=== PATIENT | male | born 1995 | race Caucasian/White ===

== ENCOUNTER 2020-02-06 18:06 | Emergency (ER) | payer OTHER ==
[~2020-02-06] VITALS: Ht 180.3 cm; Wt 83.5 kg
[2020-02-06 18:30] VITALS: BP 131/92
== END 2020-02-06 20:56 | disposition home or self-care (01) ==
LOC: ED 20:30
DX: S93.401A Sprain of unspecified ligament of right ankle, initial encounter (principal); V49.69XA Unspecified car occupant injured in collision with other motor vehicles in traffic accident, initial encounter; Y93.89 Activity, other specified; Y92.89 Other specified places as the place of occurrence of the external cause; Y99.8 Other external cause status
CPT/HCPCS: 99284